=== PATIENT | male | born 1960 | race Caucasian/White ===

== ENCOUNTER 2017-08-31 12:33 | Emergency (ER) | payer OTHER ==
[2017-08-31 12:38] VITALS: BP 146/98; PULSE 92; TEMP 98.7; BMI 31.3
[2017-08-31] MEDS ORDERED: IBUPROFEN 600 MG TABLET (FP) PO ONE ×2 (13:10→13:24)
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
== END 2017-08-31 13:42 | disposition home or self-care (01) ==
LOC: JERFT 12:33
DX: S39.012A Strain of muscle, fascia and tendon of lower back, initial encounter (principal); V49.49XA Driver injured in collision with other motor vehicles in traffic accident, initial encounter; Y92.414 Local residential or business street as the place of occurrence of the external cause; Y93.89 Activity, other specified; Y99.8 Other external cause status; J45.909 Unspecified asthma, uncomplicated; F32.9 Major depressive disorder, single episode, unspecified
CPT/HCPCS: 99281-25

== ENCOUNTER 2019-01-07 06:50 | Day surgery (SDC) | payer OTHER ==
[2019-01-06 14:47] VITALS: BMI 34.4
[2019-01-07 08:38] VITALS: TEMP 97.7
[2019-01-07 08:41] VITALS: BP 116/72
[2019-01-07 09:41] VITALS: PULSE 82
--- NOTE | 2019-01-14 10:06 | PATH ---
Surgical Pathology Report Patient Name: [facility]. Rec. #: [id number] /Age/Gender: 1960 (Age: 58) / M Account: [id number] Location: U-ENDOSCOPY Taken: 01/07/2019 Received: 01/07/2019 Reported: 01/14/2019 Physicians: Colin Ray M.D. Specimen(s) Received POLYP OF PROXIMAL TRANSVERSE COLON Clinical History History of colon adenoma Postoperative diagnosis: Polyp Final Diagnosis TRANSVERSE COLON, POLYP, BIOPSY: -Polypoid colonic mucosa with dense lymphocytic infiltrate composed of mixed B- and T- cells. The findings do not favor for a lymphoma. See comment. Comment: Sections reveal fragments of polypoid colonic mucosa with dense lymphocytic infiltrate. The lymphocytes are predominantly small in cell size without overt cytologic atypia. Immunostains show CD20 (+)/PAX-5(+) B-cells form lymphoid follicles and those follicles are associated with CD21 and CD23 highlighted dendritic meshworks. Many B-cells are positive for IgD, consistent with primary follicles. Minute BCL6+, BCL2 - reactive germinal centers are also present. CD3+/CD5+ T-cells are present at the interfollicular area. Plasma cells are polytypic. In summary, the overall findings are not diagnostic for lymphoma and favor reactive. Clinical/endoscopic correlation is recommended. This case was sent to Dr. Franchesca Moura from [facility], [place], [place] ([id number]) the diagnosis above reflects his opinion. See [facility] report for additional details ([id number]). Electronically Signed Zoya Bartholomew M.D. Gross Description Received in formalin, labeled "proximal transverse colon polyp" is a emery, irregular portion of soft tissue measuring 0.6 cm. in greatest dimension. The specimen is submitted in toto in one cassette. DL01/07/2019 saudi01/07/2019
== END 2019-01-07 09:26 | disposition home or self-care (01) ==
LOC: JASU-ENDO 06:50
PROVIDERS: ATTEND Internal Medicine Gastroenterology
PROC: 0DBL8ZX Excision of Transverse Colon, Via Natural or Artificial Opening Endoscopic, Diagnostic (ICD-10-PCS; principal; 2019-01-07 08:00)
DX: Z12.11 Encounter for screening for malignant neoplasm of colon (principal); Z86.010 Personal history of colon polyps; D12.3 Benign neoplasm of transverse colon
CPT/HCPCS: 88305-TC

== ENCOUNTER 2020-04-03 10:19 | Emergency (ER) | payer OTHER | END 2020-04-03 10:30 | disposition home or self-care (01) | LOC: JVIRT 10:19 | DX: Z20.822 Contact with and (suspected) exposure to COVID-19 (principal) | CPT/HCPCS: C9803; G2012-GT; U0003 ==

== ENCOUNTER 2023-05-05 17:05 | Emergency (ER) | payer OTHER ==
[2023-05-05 17:25] VITALS: BP 122/83; PULSE 97; RESP 16; TEMP 98.6; BMI 33.3
[2023-05-05] MEDS ORDERED: LIDOCAINE 4% PATCH TP ONE (17:54)
[2023-05-05] MEDS: LIDOCAINE 4% PATCH TP ONE (17:57)
[2023-05-05] MEDS ORDERED: LIDOCAINE PATCH REMOVAL MC SCH (22:00)
== END 2023-05-05 19:00 | disposition home or self-care (01) ==
LOC: JERFT 17:05
DX: M54.2 Cervicalgia (principal); M62.838 Other muscle spasm; V49.00XA Driver injured in collision with unspecified motor vehicles in nontraffic accident, initial encounter; Y93.I9 Activity, other involving external motion; Y92.481 Parking lot as the place of occurrence of the external cause
CPT/HCPCS: 72040-TC; 99283-25